=== PATIENT | male | born 1940 | race Caucasian/White ===

== ENCOUNTER 2017-08-24 10:20 | Day surgery (SDC) | payer MEDICAID ==
[2017-08-24] MEDS ORDERED: Propofol 10 mg/ml Inj (20 ML) ONE (13:41)
[2017-08-24] MEDS: Gentamicin 160 MG in Sodium Chloride 0.9% 100 ML IVPB ONE ×2 (13:50→13:57)
[2017-08-24] MEDS ORDERED: Lidocaine 2% Jelly (Uro-Jet) ONE (13:53)
[2017-08-24] MEDS: Ciprofloxacin 400mg/200ml D5W 400 MG/200 ML BAG IVPB ONE ×2 (13:57→14:00)
--- NOTE | 2017-08-24 14:07 | PCM.SURG1 ---
Surgeon's Initial Post Op Note - Surgeon's Notes Surgeon: Wiliam Felt Cementer: GREGORY Type of Anesthesia: IV Sedation Anesthesia Administered By: Staff Pre-Operative Diagnosis: Right ureteral stent Operative Findings: same Post-Operative Diagnosis: Right ureteral stent Operation Performed: Cysto removal of stent Specimen/Specimens Removed: stent Estimated Blood Loss: EBL {In ML}: 0 Blood Products Given: N/A Drains Used: No Drains Post-Op Condition: Good Date of Surgery/Procedure: 08/24/17 Time of Surgery/Procedure: 14:06
[2017-08-24] MEDS ORDERED: HYDROmorphone 0.5 mg/0.5 ml ISec IVP PRN (14:26)
[2017-08-24 15:41] VITALS: RESP 18
[2017-08-24 16:23] VITALS: BP 136/53; PULSE 60; TEMP 97.7; O2SAT 98
--- NOTE | 2017-08-25 01:14 | OP ---
PROCEDURE DATE: 08/24/2017 PREOPERATIVE DIAGNOSIS: Stent, status post lithotripsy. POSTOPERATIVE DIAGNOSIS: Stent, status post lithotripsy. PROCEDURE: Cystoscopy, removal of right ureteral stent. SURGEON: Memo Swain MD DESCRIPTION OF PROCEDURE: Prior to the procedure, a detailed informed consent was obtained from the patient, explaining all risks, complications, and alternatives of this procedure. He accepted the risk and he was brought into the room, and he was draped and prepped in the usual manner. Timeout was taken according to the rules and regulations of [facility]. The patient received prophylactic antibiotics and was cystoscoped with #21 Storz panendoscope. The pendulous and membranous urethra were normal. The prostatic urethra again showed trilobar hypertrophy of the prostate with significant outlet obstruction. The bladder was entered atraumatically. There was evidence of compensatory trabeculation of bladder, +3. The stent was seen protruding from the right orifice. It was grasped and removed. The patient tolerated this well. Based on these findings, previous findings of bladder calculi, the patient may need GreenLight laser prostatectomy. Memo Swian MD
--- NOTE | 2017-08-25 11:30 | RAD ---
HISTORY: RT STENT REMOVAL COMPARISON: Abdomen KUB radiographs 08/03/2017. FINDINGS: BOWEL: A nonobstructive bowel gas pattern is appreciated with right double-J ureteral stent in position. No definitive radiodense calcifications seen along the course of the stent and the 2nd image demonstrates removal of the stent. BONES: Dextroscoliotic lumbar spinal deformity reiterated with multilevel spondylosis seen throughout the lumbar spine. Degenerative sacroiliac and hip joint changes are appreciated once again. OTHER FINDINGS: None. IMPRESSION: Status post removal right double-J ureteral stent.
== END 2017-08-24 16:25 | disposition home or self-care (01) ==
LOC: C.SDS 10:20
PROVIDERS: ATTEND Urology
DX: N21.0 Calculus in bladder (principal)
CPT/HCPCS: 52310; 74018; 82948; 88300; J0744; J1170; J1580

== ENCOUNTER 2017-09-07 10:33 | Day surgery (SDC) | payer MEDICAID ==
[2017-09-07 11:27] LABS: BASO # 0.1 K/uL (0.0-0.2); BASO % 0.8 % (0.0-2.0); EOS # 0.1 K/uL (0.0-0.7); EOS % 1.3 % (0.0-4.0); HEMOGLOBIN 12.2 g/dL (12.0-18.0); LYMPH # 1.9 K/uL (1.0-4.3); LYMPH % 31.3 % (20.0-40.0); MEAN CELL VOLUME 86.1 fL (80.0-94.0); MEAN CORPUSCULAR HEMOGLOBIN 29.2 pg (27.0-31.0); MEAN CORPUSCULAR HGB CONC 33.9 g/dL (33.0-37.0); MEAN PLATELET VOLUME 9.4 fL (7.2-11.7); MONO # 0.7 K/uL (0.0-0.8); MONO % 11.1 % (0.0-10.0); NEUT # 3.4 K/uL (1.8-7.0); NEUT % 55.5 % (50.0-75.0); RBC 4.16 Mil/uL (4.40-5.90); RED CELL DISTRIBUTION WIDTH 14.6 % (11.5-14.5); WHITE BLOOD COUNT 6.2 K/uL (4.8-10.8)
[2017-09-07 11:39] LABS: BLOOD UREA NITROGEN 31 mg/dL (9-20); CALCIUM 9.2 mg/dl (8.6-10.4); GFR AFRICAN-AMERICAN > 60; GFR NON-AFRICAN AMERICAN 59
[2017-09-07] MEDS ORDERED: Gentamicin 160 MG in Sodium Chloride 0.9% 100 ML IVPB ONE (12:06)
[2017-09-07 12:15] LABS: INR 1.1; PROTHROMBIN TIME 12.3 SECONDS (9.7-12.2)
[2017-09-07] MEDS ORDERED: Ciprofloxacin 400mg/200ml D5W 400 MG/200 ML BAG IVPB ONE (12:15)
[2017-09-07] MEDS ORDERED: Propofol 10 mg/ml Inj (20 ML) ONE (12:15)
[2017-09-07] MEDS ORDERED: Lidocaine 2% Jelly (Uro-Jet) ONE (12:16)
[2017-09-07] MEDS ORDERED: HYDROmorphone 0.5 mg/0.5 ml ISec IVP PRN (13:23)
--- NOTE | 2017-09-07 14:26 | PCM.SURG1 ---
Surgeon's Initial Post Op Note - Surgeon's Notes Surgeon: Wiliam Donkey Doctor: GREGORY Type of Anesthesia: General LMA Anesthesia Administered By: staff Pre-Operative Diagnosis: BPH WILKINSON Operative Findings: BPH WILKINSON BLADDER CALCULI Post-Operative Diagnosis: BPH WILKINSON BLADDER CALCULI Operation Performed: TULAP Specimen/Specimens Removed: STONE Estimated Blood Loss: EBL {In ML}: 0 Blood Products Given: N/A Drains Used: No Drains Post-Op Condition: Good Date of Surgery/Procedure: 09/07/17 Time of Surgery/Procedure: 14:25
[2017-09-07 14:29] VITALS: RESP 15
[2017-09-07 15:03] VITALS: PULSE 65
[2017-09-07 15:42] VITALS: BP 124/56; TEMP 97.8; O2SAT 97
--- NOTE | 2017-09-08 00:41 | OP ---
PROCEDURE DATE: 09/07/2017 PREOPERATIVE DIAGNOSES: Benign prostatic hyperplasia and bladder outlet obstruction. POSTOPERATIVE DIAGNOSES: Benign prostatic hyperplasia, bladder outlet obstruction, and small bladder calculi. PROCEDURES: Transurethral laser ablation of the prostate, cystoscopy, and removal of bladder calculi (foreign body). DESCRIPTION OF PROCEDURE: The procedure is as follows: The patient signed a detailed informed consent which detailed all risks and complications of this procedure and alternative methods of treating BPH. He accepted these risks and is going to proceed with the procedure. He was brought into the room and he was draped and prepped in usual manner. He received prophylactic antibiotics, and then he was re-cystoscoped with a laser cystoscope. There was a new finding of a small bladder calculi which had formed since the patient's prior cystoscopy. We grasped this and removed it without difficulty. The laser fiber and resectoscope was inserted into that sheath and the laser fiber was used to vaporize the prostate tissue, beginning at 11 o'clock, just distal to the bladder neck and stopping just proximal to the verumontanum. The left lateral lobe, the roof tissue, and the base tissue were then vaporized, and this provided a good voiding channel. The patient tolerated this well. There was no bleeding. Again the bladder was inspected, there were no further stones. The patient's bladder was filled and the catheter was removed. A #20 two-way 5 mL catheter was inserted and it was inflated with normal amount of saline. Irrigation drainage was clear. Patient was sent to recovery room in good condition. He will be continued on Cipro. He will follow up in our office tomorrow to remove the catheter. Memo Swain MD
== END 2017-09-07 16:18 | disposition home or self-care (01) ==
LOC: C.SDS 10:33
PROVIDERS: ATTEND Urology
DX: N40.1 Benign prostatic hyperplasia with lower urinary tract symptoms (principal); N13.8 Other obstructive and reflux uropathy; N21.0 Calculus in bladder; N32.0 Bladder-neck obstruction; I10 Essential (primary) hypertension; E11.9 Type 2 diabetes mellitus without complications; I25.10 Atherosclerotic heart disease of native coronary artery without angina pectoris; Z79.84 Long term (current) use of oral hypoglycemic drugs
CPT/HCPCS: 36415; 52601; 80048; 82948; 85025; 85610; 85730; 88300; A4358; J0744; J1170; J1580